=== PATIENT | female | born 2000 | race Caucasian/White ===

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

== ENCOUNTER 2022-04-28 14:08 | Inpatient (IN) | payer OTHER, BC ==
[2022-04-28] MEDS ORDERED: Carboprost Tromethamine 250 MCG/1 ML Amp IM PRN (14:21)
[2022-04-28] MEDS ORDERED: Sodium Chloride 0.9% 20 ML SDV IV PRN (14:21)
[2022-04-28] MEDS ORDERED: Sodium Chloride 0.9% 2.5 ML Syringe FLUSH PRN (14:21)
[2022-04-28] MEDS ORDERED: Misoprostol 200 MCG Tab PO PRN (14:21)
[2022-04-28] MEDS ORDERED: Sodium Chloride 0.9% 10 ML Syringe FLUSH PRN (14:21)
[2022-04-28] MEDS ORDERED: Methylergonovine 0.2 MG/1 ML Amp IM PRN (14:21)
[2022-04-28] MEDS ORDERED: Terbutaline 1 MG/ML SDV SUBCUT PRN (14:21)
[2022-04-28] MEDS ORDERED: Lidocaine 1% 50 ML MDV INJECT PRN (14:21)
[2022-04-28] MEDS ORDERED: Ondansetron 4 MG/2 ML SDV IVPUSH PRN (14:21)
[2022-04-28] MEDS ORDERED: Water For Irrigation,Sterile 1,000 ML Container IRR PRN (14:21)
[2022-04-28] MEDS ORDERED: Tranexamic Acid 1,000 MG in Sodium Chloride 0.9% 100 ML IV PRN (14:21)
[2022-04-28] MEDS ORDERED: Oxytocin/0.9 % Sodium Chloride 30 UNIT/500 ML BAG IV SCH ×2 (14:30)
[2022-04-28] MEDS: Lactated Ringers 1,000 ML IV SCH ×2 (14:45→20:59)
[2022-04-29] MEDS: Butorphanol 1 MG/ML SDV IVPUSH PRN ×3 (01:08→06:42)
[2022-04-29] MEDS: Lactated Ringers 1,000 ML IV SCH ×2 (03:40→09:00)
[2022-04-29 03:48] LABS: CARBON DIOXIDE,CO2 21.3 mmol/L (21.0-32.0); POTASSIUM,K 3.3 mmol/L (3.5-5.1)
[2022-04-29] MEDS ORDERED: Ropivacaine/PF 400 MG/200 ML PCA ONE (08:33)
[2022-04-29] MEDS ORDERED: Ropivacaine 0.5% 5 MG/ML 30 ML SDV ONE (09:45)
[2022-04-29] MEDS ORDERED: ePHEDrine 50 MG/ML SDV IVPUSH PRN (10:05)
[2022-04-29] MEDS ORDERED: Phenylephrine HCl In 0.9% NaCl 1 MG/10 ML Vial IVPUSH PRN (10:05)
[2022-04-29] MEDS ORDERED: Ropivacaine HCl/PF 400 MG in Premix Bag 1 BAG EPIDUR SCH (10:15)
[2022-04-29] MEDS ORDERED: fentaNYL 100 MCG/2 ML SDV ONE (10:22)
[2022-04-29] MEDS ORDERED: Ibuprofen 400 MG Tab PO PRN (11:23)
[2022-04-29] MEDS ORDERED: Witch Hazel Medicated Pads 40/Jar TOP PRN (11:23)
[2022-04-29] MEDS ORDERED: Bisacodyl 10 MG Supp RECTAL PRN (11:23)
[2022-04-29] MEDS ORDERED: oxyCODONE 5 MG Tab PO PRN (11:23)
[2022-04-29] MEDS ORDERED: Benzocaine/Menthol 20%-0.5% Spray 78 GM Cannister TOP PRN (11:23)
[2022-04-29] MEDS ORDERED: Acetaminophen 500 MG Tab PO PRN (11:23)
[2022-04-29] MEDS ORDERED: Lanolin 100% Cream 7 GM Tube TOP PRN (11:23)
[2022-04-30] MEDS: Ibuprofen 800 MG Tab PO PRN ×2 (04:09→13:47)
[2022-04-30] MEDS: Acetaminophen 500 MG Tab PO PRN ×2 (08:26→22:48)
[2022-04-30] MEDS: Docusate Sodium 100 MG Cap PO PRN (13:48)
[2022-05-01] MEDS: Docusate Sodium 100 MG Cap PO PRN (04:12)
[2022-05-01] MEDS: Acetaminophen 500 MG Tab PO PRN (04:13)
[2022-05-01] MEDS: Ibuprofen 800 MG Tab PO PRN (04:14)
[2022-05-01 09:14] VITALS: BP 138/92; PULSE 70
== END 2022-05-01 12:30 | disposition home or self-care (01) | DRG 806 ==
LOC: MW.OB 14:08 → OBSVTOIN 04-29 11:05 → MW.OB 04-29 14:56
PROVIDERS: ADMIT Obstetrics & Gynecology; ATTEND Obstetrics & Gynecology
PROC: 10E0XZZ Delivery of Products of Conception, External Approach (ICD-10-PCS; principal; 2022-04-29)
PROC: 0HQ9XZZ Repair Perineum Skin, External Approach (ICD-10-PCS; 2022-04-29)
PROC: 3E0R3BZ Introduction of Anesthetic Agent into Spinal Canal, Percutaneous Approach (ICD-10-PCS; 2022-04-29)
PROC: 00HU33Z Insertion of Infusion Device into Spinal Canal, Percutaneous Approach (ICD-10-PCS; 2022-04-29)
PROC: 3E033VJ Introduction of Other Hormone into Peripheral Vein, Percutaneous Approach (ICD-10-PCS; 2022-04-29)
DX: O36.5930 Maternal care for other known or suspected poor fetal growth, third trimester, not applicable or unspecified (principal); O41.03X0 Oligohydramnios, third trimester, not applicable or unspecified; Z37.0 Single live birth; O70.0 First degree perineal laceration during delivery; O99.214 Obesity complicating childbirth; Z20.822 Contact with and (suspected) exposure to COVID-19; O13.4 Gestational [pregnancy-induced] hypertension without significant proteinuria, complicating childbirth; Z3A.37 37 weeks gestation of pregnancy; Z98.890 Other specified postprocedural states
CPT/HCPCS: 36415; 36430; 51702; 59025; 59409; 80053; 81003; 82803; 85014; 85018; 85027; 85460; 86592; 86850; 86900; 86901; A9270-GY; J0595; J2590; J2790; J2795; J3010; J7120; U0002

== ENCOUNTER 2023-08-11 11:08 | Emergency (ER) | payer OTHER, BC ==
[2023-08-11 11:38] LABS: BASOPHILS ABSOLUTE AUTO 0.03 K/uL (0.00-0.20); BASOPHILS PERCENT AUTO 0.4 % (0.0-1.0); EOSINOPHILS ABSOLUTE AUTO 0.38 K/uL (0.00-0.45); EOSINOPHILS PERCENT AUTO 5.7 % (0.0-6.0); HEMATOCRIT 43.3 % (37.0-47.0); IMMATURE GRAN ABSOLUTE AUTO 0.01 K/uL (0.00-0.05); IMMATURE GRAN PERCENT AUTO 0.1 % (0.0-0.4); LYMPHOCYTES ABSOLUTE AUTO 2.77 K/uL (1.00-4.80); LYMPHOCYTES PERCENT AUTO 41.3 % (24.0-44.0); MEAN CORPUSCULAR HEMOGLOBIN 31.1 pg (28.0-32.0); MEAN CORPUSCULAR HGB CONC 34.6 g/dL (32.0-36.0); MEAN CORPUSCULAR VOLUME 89.6 fL (83.0-99.0); MEAN PLATELET VOLUME 9.5 fL (9.4-12.3); MONOCYTES ABSOLUTE AUTO 0.41 K/uL (0.00-0.80); MONOCYTES PERCENT AUTO 6.1 % (0.0-8.0); NEUTROPHILS ABSOLUTE AUTO 3.11 K/uL (1.80-7.70); NEUTROPHILS PERCENT AUTO 46.4 % (41.0-71.0); PLATELET COUNT,PLT 315 K/uL (150-400); RED BLOOD CELL COUNT 4.83 M/uL (4.10-5.30); WHITE BLOOD CELL COUNT,WBC 6.71 K/uL (3.9-11.3)
[2023-08-11 11:52] VITALS: BP 130/79
[2023-08-11 12:02] LABS: ALBUMIN 3.7 g/dL (3.4-5.0); BILIRUBIN TOTAL 0.3 mg/dL (0.2-1.0); CALCIUM 8.2 mg/dL (8.5-10.1); CARBON DIOXIDE,CO2 24.9 mmol/L (21.0-32.0); CREATININE 0.8 mg/dL (0.6-1.0); EST CRCL DRUG DOSING (CG) 87.98 mL/min; PROTEIN TOTAL,TP 7.3 g/dL (6.4-8.2)
[2023-08-11] MEDS: Acetaminophen 500 MG Tab PO STA (12:03)
[2023-08-11 12:14] LABS: APPEARANCE,URINE SLT CLOUDY; BILIRUBIN,URINE NEGATIVE (NEGATIVE); COLOR,URINE YELLOW; GLUCOSE,URINE NEGATIVE (NEGATIVE); KETONES,URINE NEGATIVE (NEGATIVE); LEUKOCYTE ESTERASE,URINE NEGATIVE (NEGATIVE); NITRITE,URINE NEGATIVE (NEGATIVE); OCCULT BLOOD,URINE LARGE (NEGATIVE); PH,URINE 6.5 (5.0-8.0); PROTEIN,URINE NEGATIVE (NEGATIVE); UROBILINOGEN,URINE 0.2 EU/dL (<2.0)
[2023-08-11 12:28] LABS: BACTERIA,URINE NOT SEEN (NEGATIVE); EPITHELIAL CELLS,URINE FEW (NONE-FEW); RBC,URINE 25-30 (0-2/HPF); WBC,URINE 0-1 (0-5/HPF)
[2023-08-11 15:56] VITALS: PULSE 64
== END 2023-08-11 15:55 | disposition home or self-care (01) ==
LOC: MW.ED 11:08
DX: O03.9 Complete or unspecified spontaneous abortion without complication (principal); Z79.899 Other long term (current) drug therapy
CPT/HCPCS: 36415; 76817; 80053; 81001; 84702; 85025; 86850; 86900; 86901; 90384; 96372; 99284; A9270; J2790

== ENCOUNTER 2024-06-14 14:14 | Inpatient (IN) | payer OTHER, BC ==
[2024-06-14] MEDS ORDERED: Water For Irrigation,Sterile 1,000 ML Container IRR PRN (14:36)
[2024-06-14] MEDS ORDERED: Carboprost Tromethamine 250 MCG/1 mL Vial IM PRN (14:36)
[2024-06-14] MEDS ORDERED: Sodium Chloride 0.9% 2.5 ML Syringe FLUSH PRN (14:36)
[2024-06-14] MEDS ORDERED: Misoprostol 200 MCG Tab PO PRN (14:36)
[2024-06-14] MEDS ORDERED: Ondansetron 4 MG/2 ML SDV IVPUSH PRN (14:36)
[2024-06-14] MEDS ORDERED: Sodium Chloride 0.9% 20 ML SDV IV PRN (14:36)
[2024-06-14] MEDS ORDERED: Methylergonovine 0.2 MG/1 ML Amp IM PRN (14:36)
[2024-06-14] MEDS ORDERED: Sodium Chloride 0.9% 10 ML Syringe FLUSH PRN (14:36)
[2024-06-14] MEDS: Butorphanol 1 MG/ML SDV IVPUSH PRN (14:50)
[2024-06-14] MEDS: Lactated Ringers 1,000 ML IV SCH (14:50)
[2024-06-14 14:57] LABS: HEMATOCRIT 37.4 % (37.0-47.0); HEMOGLOBIN 13.3 g/dL (12.0-16.0); MEAN CORPUSCULAR HEMOGLOBIN 32.5 pg (28.0-32.0); MEAN CORPUSCULAR HGB CONC 35.6 g/dL (32.0-36.0); MEAN CORPUSCULAR VOLUME 91.4 fL (83.0-99.0); MEAN PLATELET VOLUME 10.4 fL (9.4-12.3); PLATELET COUNT,PLT 247 K/uL (150-400); RED BLOOD CELL COUNT 4.09 M/uL (4.10-5.30); WHITE BLOOD CELL COUNT,WBC 11.03 K/uL (3.9-11.3)
[2024-06-14] MEDS: Ropivacaine HCl/PF 400 MG in Premix Bag 1 BAG EPIDUR SCH (15:10)
[2024-06-14] MEDS ORDERED: ePHEDrine 50 MG/ML SDV IVPUSH PRN (15:18)
[2024-06-14] MEDS ORDERED: Phenylephrine HCl In 0.9% NaCl 1 MG/10 ML Syringe IVPUSH PRN (15:18)
[2024-06-14] MEDS ORDERED: dexmedeTOMIDine HCl 200 MCG/2 ML SDV EPIDUR SCH (15:30)
[2024-06-14] MEDS ORDERED: Simethicone 80 MG Tab.Chew PO PRN (16:52)
[2024-06-14] MEDS: Oxytocin/0.9 % Sodium Chloride 30 UNIT/500 ML BAG IV SCH (17:23)
[2024-06-14] MEDS: dexmedeTOMIDine HCl 200 MCG/2 ML SDV ONE (17:49)
[2024-06-14] MEDS: Phenylephrine HCl In 0.9% NaCl 1 MG/10 ML Syringe ONE (17:49)
[2024-06-14] MEDS: Ropivacaine HCl/PF 200 ML ONE (17:49)
[2024-06-14] MEDS: Lidocaine 1% 50 ML MDV INJECT PRN (17:50)
[2024-06-14 18:02] LABS: PH,UMBILICAL ARTERIAL 7.4 (7.18-7.38); PH,UMBILICAL VENOUS 7.39 (7.25-7.45)
[2024-06-14] MEDS: Misoprostol 200 MCG Tab PO PRN (19:20)
[2024-06-14] MEDS: Tranexamic Acid in NACL,ISO-OS 100 ML ONE (19:43)
[2024-06-14 20:18] LABS: HEMATOCRIT 34.2 % (37.0-47.0); MEAN CORPUSCULAR HEMOGLOBIN 32.3 pg (28.0-32.0); MEAN CORPUSCULAR HGB CONC 35.1 g/dL (32.0-36.0); MEAN CORPUSCULAR VOLUME 92.2 fL (83.0-99.0); MEAN PLATELET VOLUME 10.3 fL (9.4-12.3); PLATELET COUNT,PLT 221 K/uL (150-400); RED BLOOD CELL COUNT 3.71 M/uL (4.10-5.30); WHITE BLOOD CELL COUNT,WBC 17.59 K/uL (3.9-11.3)
[2024-06-14 20:33] LABS: INR 0.94 (0.86-1.11); PTT,PARTIAL THROMBOPLSTIN TIME 25.7 SEC (23.9-30.7)
[2024-06-14] MEDS: Ibuprofen 800 MG Tab PO PRN (20:55)
[2024-06-14] MEDS: Acetaminophen 500 MG Tab PO PRN (20:56)
[2024-06-14] MEDS: Lanolin 100% Cream 7 GM Tube TOP PRN (20:57)
[2024-06-14 20:58] LABS: A/G RATIO 0.7 (0.9-1.6); ALBUMIN 2.4 g/dL (3.4-5.0); BILIRUBIN TOTAL 0.5 mg/dL (0.2-1.0); CALCIUM 7.8 mg/dL (8.5-10.1); CARBON DIOXIDE,CO2 21.9 mmol/L (21.0-32.0); CREATININE 0.6 mg/dL (0.6-1.0); EST CRCL DRUG DOSING (CG) 116.32 mL/min; POTASSIUM,K 3.9 mmol/L (3.5-5.1)
[2024-06-14] MEDS: Witch Hazel Medicated Pads 40/Jar TOP PRN (20:58)
[2024-06-14] MEDS: Benzocaine/Menthol 20%-0.5% Spray 78 GM Cannister TOP PRN (20:58)
[2024-06-15 06:16] LABS: HEMATOCRIT 32.2 % (37.0-47.0); HEMOGLOBIN 11.1 g/dL (12.0-16.0); MEAN CORPUSCULAR HEMOGLOBIN 32.5 pg (28.0-32.0); MEAN CORPUSCULAR HGB CONC 34.5 g/dL (32.0-36.0); MEAN CORPUSCULAR VOLUME 94.2 fL (83.0-99.0); MEAN PLATELET VOLUME 10.6 fL (9.4-12.3); PLATELET COUNT,PLT 204 K/uL (150-400); RED BLOOD CELL COUNT 3.42 M/uL (4.10-5.30)
[2024-06-15 06:42] LABS: A/G RATIO 0.7 (0.9-1.6); ALBUMIN 2.3 g/dL (3.4-5.0); BILIRUBIN DIRECT 0.1 mg/dL (0.0-0.5); BILIRUBIN INDIRECT 0.2; BILIRUBIN TOTAL 0.3 mg/dL (0.2-1.0); PROTEIN TOTAL,TP 5.4 g/dL (6.4-8.2)
[2024-06-15] MEDS: Docusate Sodium 100 MG Cap PO PRN (12:29)
[2024-06-15 20:17] VITALS: BP 136/84; PULSE 85
== END 2024-06-15 19:58 | disposition home or self-care (01) | DRG 806 ==
LOC: MW.OBCHECK 14:14 → MW.OB 14:20 → MW.OBCHECK 17:20 → OBSVTOIN 17:22 → MW.OB 17:22
PROVIDERS: ADMIT Obstetrics & Gynecology; ATTEND Obstetrics & Gynecology
PROC: 10E0XZZ Delivery of Products of Conception, External Approach (ICD-10-PCS; principal; 2024-06-14)
PROC: 3E0R3BZ Introduction of Anesthetic Agent into Spinal Canal, Percutaneous Approach (ICD-10-PCS; 2024-06-14)
PROC: 0UQMXZZ Repair Vulva, External Approach (ICD-10-PCS; 2024-06-14)
PROC: 30233S1 Transfusion of Nonautologous Globulin into Peripheral Vein, Percutaneous Approach (ICD-10-PCS; 2024-06-14)
DX: O42.92 Full-term premature rupture of membranes, unspecified as to length of time between rupture and onset of labor (principal); D62 Acute posthemorrhagic anemia; Z37.0 Single live birth; O99.214 Obesity complicating childbirth; O99.344 Other mental disorders complicating childbirth; O62.2 Other uterine inertia; O70.0 First degree perineal laceration during delivery; O99.02 Anemia complicating childbirth; Z3A.39 39 weeks gestation of pregnancy; Z90.49 Acquired absence of other specified parts of digestive tract; Z79.899 Other long term (current) drug therapy
CPT/HCPCS: 36415; 36430; 51701; 59025; 59409; 80053; 80076; 82803; 85027; 85384; 85460; 85610; 85730; 86592; 86850; 86900; 86901; 86920; A9270-GY; J0595; J2003; J2371; J2590; J2791; J2795; J7120